=== PATIENT | male | born 1975 | race Caucasian/White ===

== ENCOUNTER 2017-08-03 21:25 | Emergency (ER) | payer OTHER ==
[2017-08-04] MEDS: LIDOCAINE 1% (MDV) 20 ML INJ SC (00:30)
[2017-08-04] MEDS: METOCLOPRAMIDE 10 MG INJ IV (01:57)
[2017-08-04] MEDS: DIPHENHYDRAMINE 50 MG INJ IV (01:57)
[2017-08-04] MEDS: KETOROLAC 15 MG INJ IV (01:57)
[2017-08-04] MEDS: FENTAnyl 50 MCG/ML VIAL IV (01:58)
[2017-08-04] MEDS: ONDANSETRON 4 MG INJ IV (04:07)
[2017-08-04] MEDS: HYDROmorphONE 1 MG/ML SYG IV (04:08)
[2017-08-04 04:53] LABS: ADD MAN DIFF? NO
[2017-08-04 04:54] LABS: BASOPHILS % 0.2 % (0.0-2.0); EOSINOPHILS # 0.2 10^3/ul (0.0-0.5); EOSINOPHILS % 1.5 % (0.0-7.0); HEMATOCRIT 44.3 % (42.0-52.0); HEMOGLOBIN 14.9 g/dl (14.0-18.0); LYMPHOCYTES # 2.7 10^3/ul (0.8-2.9); LYMPHOCYTES % 24.2 % (15.0-51.0); MEAN CORPUSCULAR HEMOGLOBIN 30.3 pg (29.0-33.0); MEAN CORPUSCULAR HGB CONC 33.6 g/dl (32.0-37.0); MEAN CORPUSCULAR VOLUME 90.2 fl (82.0-101.0); MEAN PLATELET VOLUME 10.9 fl (7.4-10.4); MONOCYTE # 0.8 10^3/ul (0.3-0.9); NEUTROPHIL # 7.4 10^3/ul (1.6-7.5); NEUTROPHILS % 66.7 % (39.0-77.0); PLATELET COUNT 229 10^3/UL (140-415); RED BLOOD COUNT 4.91 10^6/ul (4.70-6.10); RED CELL DISTRIBUTION WIDTH 13.1 % (11.5-14.5)
[2017-08-04 04:54] LABS: WHITE BLOOD COUNT 11.1 10^3/ul (4.8-10.8)
[2017-08-04 05:15] LABS: INR 0.95; PROTIME 12.8 Sec (11.9-14.9)
[2017-08-04 05:16] LABS: PARTIAL THROMBOPLASTIN TIME 28.2 Sec (25.0-35.0)
[2017-08-04 05:17] LABS: ALANINE AMINOTRANSFERASE 43 IU/L (13-69); ALBUMIN 4.3 g/dl (3.3-4.9); ALKALINE PHOSPHATASE 68 IU/L (42-121); ANION GAP 17 (8-16); ASPARTATE AMINO TRANSFERASE 33 IU/L (15-46); BILIRUBIN,INDIRECT 0.4 mg/dl (0-1.1); BILIRUBIN,TOTAL 0.4 mg/dl (0.2-1.3); BLOOD UREA NITROGEN 16 mg/dl (7-20); CALCIUM 9.2 mg/dl (8.4-10.2); CARBON DIOXIDE 26 mmol/L (21-31); CHLORIDE 103 mmol/L (97-110); CREATININE 0.96 mg/dl (0.61-1.24); GLUCOSE 94 mg/dl (70-220); POTASSIUM 3.7 mmol/L (3.5-5.1); SODIUM 142 mmol/L (135-144)
== END 2017-08-04 05:33 | disposition home or self-care (01) ==
LOC: E/R 08-04 05:33
DX: S02.19XA Other fracture of base of skull, initial encounter for closed fracture (principal); G93.89 Other specified disorders of brain; S15.002A Unspecified injury of left carotid artery, initial encounter; S12.500A Unspecified displaced fracture of sixth cervical vertebra, initial encounter for closed fracture; S01.01XA Laceration without foreign body of scalp, initial encounter; S60.512A Abrasion of left hand, initial encounter; H72.92 Unspecified perforation of tympanic membrane, left ear; F17.210 Nicotine dependence, cigarettes, uncomplicated; R40.2142 Coma scale, eyes open, spontaneous, at arrival to emergency department; R40.2252 Coma scale, best verbal response, oriented, at arrival to emergency department; R40.2362 Coma scale, best motor response, obeys commands, at arrival to emergency department; V18.4XXA Pedal cycle driver injured in noncollision transport accident in traffic accident, initial encounter
CPT/HCPCS: 12002; 70450; 70486; 72125; 80048; 80076; 85025; 85610; 85730; 96374; 96375; 99291-25